=== PATIENT | female | born 1940 | race Caucasian/White ===

== ENCOUNTER → 2020-01-05 16:02 | Outpatient (CLI) | payer OTHER, SELFPAY ==
--- NOTE | 2020-01-05 16:12 | DI.ECHO.S_ITS ---
[facility] +---------+ : : [address] : [address] : : : : [id number] : : : : Phone: [phone]+ Echocardiogram Report + + :Name: ROSITA TRUJILLO Study Date: 01/05/2020 Height: 63 in : :[facility] Weight: 147 lb : : Gender: Female BSA: 1.7 m2 : :: 1940 Age: 79 yrs BP: 152/98 mmHg: :Reason For Study: SUPRAVENTRICULAR TACHYCARDIA : :Ordering Physician: DAYDAY PEDRO Performed By: Felicity Scott : :Referring: DAYDAY PEDRO : + + Interpretation Summary 1) Normal left ventricular thickness, size, wall motion, and systolic function (EF 60-65%). 2) Normal right ventricular size and function. 3) No significant valvular abnormalities. 4) No prior Echo available for comparison. Procedure: A two-dimensional transthoracic echocardiogram with color flow and Doppler was performed. The study quality was technically adequate. There is no prior echocardiogram noted for this patient. Segments of tachycardia with heart rates up to 146bpm. Left Ventricle: The left ventricle is normal in size and wall thickness. The ejection fraction is estimated to be 60-65%. Left ventricular systolic function appears normal without focal wall motion abnormalities. Diastolic function could not be accurately assessed due to tachycardia. Right Ventricle: The right ventricle is normal in size and function. Atria: The left atrium is moderately dilated. Right atrial size is normal. There is no Doppler evidence for an interatrial shunt. Mitral Valve: There is mild mitral annular calcification. There is no mitral regurgitation noted. Aortic Valve: The aortic valve is trileaflet. The aortic valve opens well. There is no aortic valve stenosis. No aortic regurgitation is present. Tricuspid Valve: The tricuspid valve is normal in structure and function. No tricuspid regurgitation. Pulmonary artery pressures cannot be estimated because of the lack of a measurable TR jet velocity but the IVC suggests a CVP of around 3 mmHg. Pulmonic Valve: The pulmonic valve is not well visualized. There is trace pulmonic regurgitation. Great Vessels: The aortic root is normal size. The ascending aorta is at the upper limits of normal in size. The IVC is of normal diameter and collapses greater than 50% with a sniff. This suggests a low right atrial pressure of 3 mm Hg. Pericardium/ Pleura There is no pericardial effusion. There is an anterior echo-free space consistent with a fat pad. There is no pleural effusion. MMode/2D Measurements & Calculations LVIDd: 4.8 cm LVOT diam: 2.1 cm LVIDs: 3.2 cm Ao root diam: 3.3 cm FS: 32.6 % asc Aorta Diam: 3.7 cm IVSd: 0.88 cm Ao Arch Diam (Prox Trans): 2.4 cm LVPWd: 0.86 cm LV jim. diameter/BSA (cm/m^2): 2.8 LV sys. diameter/BSA (cm/m^2): 1.9 LA A2 area: 25.0 cm2 RA long axis: 5.3 cm LA A4 area: 18.8 cm2 RA area: 15.6 cm2 LA length (vol): 6.1 cm RA vol: 38.9 ml LA vol: 65.9 ml RA : 22.9 ml/m2 LA vol index: 38.8 ml/m2 IVC diam: 1.5 cm RVD1 (basal): 2.8 cm TAPSE: 2.3 cm Doppler Measurements & Calculations Ao V2 max: 125.4 cm/sec LVOT Max Andrea: 92.7 cm/sec Ao V2 mean: 87.6 cm/sec LV V1 max P.4 mmHg Ao max P.3 mmHg LV V1 VTI: 19.9 cm Ao mean P.4 mmHg ESTELLA(I,D): 2.8 cm2 Ao V2 VTI: 24.7 cm ESTELLA(V,D): 2.6 cm2 sev ratio: 0.81 ESTELLA indexed to BSA (cm^2/m^2): 1.6 MV E max andrea: 101.2 cm/sec MV P1/2t max andrea: 98.5 cm/sec Med Peak E' Andrea: 5.3 cm/sec MVA(P1/2t): 6.3 cm2 E/E' med: 19.0 Lat Peak E' Andrea: 8.4 cm/sec E/E' lat: 12.1 E/e' average: 15.5 MV dec time: 0.15 sec MV P1/2t: 34.7 msec PATSY): 68.6 ml Reading Physician:05:20 PM
== END ==
PROVIDERS: Referring Provider Internal Medicine Cardiovascular Disease; Visit Provider Internal Medicine Cardiovascular Disease
DX: I47.1 Supraventricular tachycardia (principal)
CPT/HCPCS: 93306